=== PATIENT | male | born 1955 | race Caucasian/White ===

== ENCOUNTER 2017-05-19 03:14 | Emergency (ER) | payer BC ==
[~2017-05-19] VITALS: Ht 177.8 cm; Wt 70.3 kg
== END 2017-05-19 06:43 | disposition home or self-care (01) ==
LOC: ER 03:14
DX: S66.912A Strain of unspecified muscle, fascia and tendon at wrist and hand level, left hand, initial encounter (principal); S40.012A Contusion of left shoulder, initial encounter; M19.042 Primary osteoarthritis, left hand; Z90.49 Acquired absence of other specified parts of digestive tract; V19.9XXA Pedal cyclist (driver) (passenger) injured in unspecified traffic accident, initial encounter
CPT/HCPCS: 29125; 73030; 73110; 99283; L3917

== ENCOUNTER 2017-06-30 09:59 | Emergency (ER) | payer BC ==
[~2017-06-30] VITALS: Ht 177.8 cm; Wt 80.7 kg
== END 2017-06-30 10:30 | disposition home or self-care (01) ==
LOC: ER 09:59
DX: M25.512 Pain in left shoulder (principal); M79.602 Pain in left arm; M79.642 Pain in left hand; Z87.891 Personal history of nicotine dependence
CPT/HCPCS: 99282